=== PATIENT | male | born 1965 ===

== ENCOUNTER 2020-10-13 10:09 | Outpatient (CLI) | payer OTHER ==
[2020-10-13] MEDS ORDERED: OMNIPAQUE 350 MG/ML, 100ML BOTTLE ONE (11:29)
== END 2020-10-13 23:59 | disposition home or self-care (01) ==
LOC: CFH 10:09
PROVIDERS: ATTEND Internal Medicine Cardiovascular Disease
DX: I10 Essential (primary) hypertension (principal); I71.9 Aortic aneurysm of unspecified site, without rupture; R94.31 Abnormal electrocardiogram [ECG] [EKG]; M51.34 Other intervertebral disc degeneration, thoracic region
CPT/HCPCS: 71275; 82565; Q9967